=== PATIENT | female | born 1990 | race Caucasian/White ===

== ENCOUNTER → 2023-06-27 | Outpatient (CLI) | payer OTHER ==
[2023-06-27 14:56] LABS: Stool Occult Bld Immuno 1 Negative (NEGATIVE)
== END | disposition home or self-care (01) ==
LOC: LAB SHORT 06:39 → LAB 06:39
PROVIDERS: Family Medicine
DX: R10.9 Unspecified abdominal pain (principal); R19.7 Diarrhea, unspecified
CPT/HCPCS: 82274; 87338

== ENCOUNTER 2024-04-17 06:07 | Day surgery (SDC) | payer OTHER ==
[~2024-04-17] VITALS: Ht 160 cm; Wt 41.6 kg
[~2024-04-17 06:07] MED LIST: Lactated Ringer's 1,000 ML IV ONE
[2024-04-17] MEDS ORDERED: Lactated Ringer's 1,000 ML IV ONE ×2 (06:50→09:24)
[2024-04-17] MEDS ORDERED: OMEP20ER PO (06:50)
[2024-04-17] MEDS ORDERED: POTA10T PO (06:51)
[2024-04-17] MEDS ORDERED: METHI10 PO (06:52)
[2024-04-17] MEDS ORDERED: Sugammadex Sodium 200 MG/2ML SDV (100 MG/ML) ONE (06:59)
[2024-04-17] MEDS ORDERED: propofoL 20 ML IV ONE (06:59)
[2024-04-17] MEDS ORDERED: Midazolam HCl 1MG / ML 2ML Vial ONE (06:59)
[2024-04-17] MEDS ORDERED: FentaNYL Citrate 50 MCG/ML 2 ML Injection ONE ×2 (06:59→09:01)
[2024-04-17] MEDS ORDERED: Rocuronium Bromide 10 MG/ML 5ML Injection IV ONE (06:59)
[2024-04-17] MEDS ORDERED: Dexamethasone Sod Phos 10 MG/ML 1ML VIAL ONE (07:01)
[2024-04-17] MEDS ORDERED: Ondansetron HCl 2 MG / ML 2ML Vial ONE (07:01)
[2024-04-17] MEDS ORDERED: Lidocaine 2%-Epineph 1:200000 20 ML SDV ONE (07:07)
[2024-04-17] MEDS ORDERED: propofoL 40 ML IV ONE (07:41)
[2024-04-17 09:36] VITALS: BP 124/74
[2024-04-17] MEDS ORDERED: OxyCODONE HCL 5 MG TAB ONE (09:53)
== END 2024-04-17 10:35 | disposition home or self-care (01) ==
LOC: ORSCSDS 06:07
PROVIDERS: Otolaryngology
PROC: 0GTH0ZZ Resection of Right Thyroid Gland Lobe, Open Approach (ICD-10-PCS; principal; 2024-04-17 07:30)
DX: E05.10 Thyrotoxicosis with toxic single thyroid nodule without thyrotoxic crisis or storm (principal); K21.9 Gastro-esophageal reflux disease without esophagitis; Z79.899 Other long term (current) drug therapy
CPT/HCPCS: 88307; A9270; J1100; J2250; J2405; J2704; J3010; J7120

== ENCOUNTER 2024-04-23 14:50 | Emergency (ER) | payer OTHER ==
[~2024-04-23] VITALS: Ht 160 cm; Wt 41.3 kg
[~2024-04-23 14:50] MED LIST changes: -Lactated Ringer's 1,000 ML IV ONE; +METHI10 PO; +OMEP20ER PO; +POTA10T PO
[2024-04-23 15:02] VITALS: BP 126/78
[2024-04-23] MEDS ORDERED: Glycerin Adult Supp 1 EA PR ONE (18:10)
[2024-04-23] MEDS ORDERED: MAGCIT300 PO (18:11)
[2024-04-23] MEDS ORDERED: MINERAL OIL133 M1 PR (18:12)
[2024-04-23] MEDS ORDERED: Adult Glycerin1 EACH PR (18:12)
== END 2024-04-23 18:23 | disposition home or self-care (01) ==
LOC: ER 14:50
DX: K59.00 Constipation, unspecified (principal); Z79.899 Other long term (current) drug therapy
CPT/HCPCS: 74019; 99283-25; A9270